=== PATIENT | female | born 1965 | race Caucasian/White ===

== ENCOUNTER 2021-03-02 22:14 | Emergency (ER) | payer OTHER ==
[2021-03-02 22:24] VITALS: BP 120/73; PULSE 72; TEMP 99.1; BMI 33.5
== END 2021-03-02 23:15 | disposition home or self-care (01) ==
LOC: FER 22:14
DX: S93.401A Sprain of unspecified ligament of right ankle, initial encounter (principal); W10.8XXA Fall (on) (from) other stairs and steps, initial encounter; Y92.9 Unspecified place or not applicable
CPT/HCPCS: 73610-TC-RT-FY; 99284-25